=== PATIENT | female | born 1935 | race Two or more races ===

== ENCOUNTER 2020-08-13 17:05 | Inpatient (IN) | payer MEDICARE, MEDICAID ==
[2020-08-13] VITALS (9 sets, daily range): BP systolic 127–164; BP diastolic 67–81
[~2020-08-13] VITALS: Ht 162.6 cm; Wt 78.5 kg
[2020-08-13] MEDS ORDERED: ETOMIDATE (2MG/ML) 20ML VIAL IV ONE ×3 (17:27→18:00)
[2020-08-13] MEDS ORDERED: SUCCINYLCHOLINE CHLORIDE 20 MG/ML 10ML VIAL IV ONE ×3 (17:28→18:00)
[2020-08-13] MEDS ORDERED: MIDAZOLAM DRIP 50 mg/50mL 50 ML IV ONE (17:34)
[2020-08-13] MEDS ORDERED: MIDAZOLAM DRIP 50 mg/50mL 50 ML IV SCH (18:00)
[2020-08-13] MEDS ORDERED: DOXYCYCLINE 100MG/250ML 250 ML IV ONE (18:00)
[2020-08-13] MEDS ORDERED: DexAMETHasone SOD PHOS 10MG/1ML VIAL INJ IV ONE (18:00)
[2020-08-13] MEDS ORDERED: AZITHROMYCIN 500MG/ 250ML 250 ML IV ONE (18:00)
[2020-08-13] MEDS: MIDAZOLAM DRIP 50 mg/50mL 50 ML IV SCH ×2 (18:00→18:08)
[2020-08-13 18:25] LABS: Urine Bacteria MANY /hpf (None Seen); Urine Blood Negative /uL (Negative); Urine Mucus FEW (None Seen); Urine WBC 4 /hpf (0 - 5)
[2020-08-13 18:26] LABS: Basophils # (auto) 0.1 10 ^3/uL (0-0.2); Basophils % (auto) 0.7 % (0.0-2.0); Eosinophils # (auto) 0.2 10 ^3/uL (0-0.8); Eosinophils % (auto) 1.2 % (0.0-7.0); Hematocrit 42.7 % (36.0-46.0); Hemoglobin 13.8 g/dL (12.2-16.2); Lymphocytes # (auto) 5.8 10 ^3/uL (0.4-5.4); Lymphocytes % (auto) 42.1 % (10.0-50.0); Mean Corpuscular Hemoglobin 30.7 pg (28.0-32.0); Mean Corpuscular Hgb Conc. 32.2 g/dL (32.0-36.0); Mean Corpuscular Volume 95.3 fL (80.0-100.0); Monocytes # (auto) 1.1 10 ^3/uL (0-1.3); Monocytes % (auto) 7.8 % (0.0-12.0); Neutrophils # (auto) 6.6 10 ^3/uL (1.6-8.6); Neutrophils % (auto) 48.2 % (37.0-80.0); Nucleated Red Blood Cells % 0.1 %; Platelet Count (auto) 265 10^3/uL (140-450); Red Blood Cells 4.49 10^6/uL (4.0-5.20); Red Cell Distribution Width 15.7 % (11.8-14.3); White Blood Cell 13.8 10^3/uL (4.4-10.8)
[2020-08-13 18:44] LABS: Albumin 3.5 g/dL (3.4-5.0); Anion Gap 11 (5-15); Blood Urea Nitrogen 31 mg/dL (7-18); Calcium 7.9 mg/dL (8.5-10.1); Carbon Dioxide 21 mmol/L (21-32); Chloride 111 mmol/L (98-107); Glucose 218 mg/dL (74-106); Sodium 143 mmol/L (136-145)
[2020-08-13 18:50] LABS: Alanine Aminotransferase 41 U/L (13-56); Alkaline Phosphatase 106 U/L (45-117); Aspartate Aminotransferase 57 U/L (15-37); BUN/Creatinine Ratio 22.5; Bilirubin, Total 0.5 mg/dL (0.2-1.0); GFR African American 47 mL/min; GFR Non-African American 39 mL/min; Total Protein 7.7 g/dL (6.4-8.2)
[2020-08-13] MEDS: NOREPINEPHRINE 8 MG/250ML KIT 250 ML IV SCH (19:00)
[2020-08-13] MEDS: fentaNYL Drip 2500mCg/250mlNS 250 ML IV SCH (19:00)
[2020-08-13] MEDS ORDERED: NOREPINEPHRINE 8 MG/250ML KIT 250 ML IV ONE (19:00)
[2020-08-13] MEDS ORDERED: fentaNYL Drip 2500mCg/250mlNS 250 ML IV ONE (19:01)
[2020-08-13] MEDS ORDERED: NITROGLYCERIN 0.4 MG SL TAB SL PRN (20:00)
[2020-08-13] MEDS ORDERED: MORPHINE SULF INJ 2 MG/ML SYRINGE 1ML IV PRN ×2 (20:00)
[2020-08-13] MEDS ORDERED: ONDANSETRON HCL 4 MG/2 ML VIAL IV PRN (20:00)
[2020-08-13] MEDS ORDERED: DEXTROSE (50%) 50ML SYRG IV PRN (20:00)
[2020-08-13] MEDS ORDERED: ACETAMINOPHEN 500 MG TAB PO PRN (20:00)
[2020-08-13] MEDS: FUROSEMIDE 40 MG/4 ML VIAL IV SCH (21:13)
[2020-08-13 21:32] LABS: INR 1.04 (0.9-1.15); Partial Thromboplastin Time 25.6 sec (23.0-31.2)
[2020-08-13] MEDS: ATORVASTATIN 20 MG TAB PO SCH (22:00)
[2020-08-14] VITALS (105 sets, daily range): BP systolic 72–192; BP diastolic 37–88
[2020-08-14] MEDS: MIDAZOLAM DRIP 50 mg/50mL 50 ML IV SCH ×3 (04:00→18:22)
[2020-08-14 06:48] LABS: Basophils # (auto) 0 10 ^3/uL (0-0.2); Basophils % (auto) 0.2 % (0.0-2.0); Eosinophils # (auto) 0 10 ^3/uL (0-0.8); Hematocrit 38.9 % (36.0-46.0); Hemoglobin 13.1 g/dL (12.2-16.2); Lymphocytes # (auto) 1.2 10 ^3/uL (0.4-5.4); Mean Corpuscular Hemoglobin 31.1 pg (28.0-32.0); Mean Corpuscular Hgb Conc. 33.7 g/dL (32.0-36.0); Mean Corpuscular Volume 92.2 fL (80.0-100.0); Monocytes # (auto) 0.4 10 ^3/uL (0-1.3); Monocytes % (auto) 4.1 % (0.0-12.0); Neutrophils # (auto) 7.4 10 ^3/uL (1.6-8.6); Neutrophils % (auto) 82.7 % (37.0-80.0); Nucleated Red Blood Cells % 0.1 %; Platelet Count (auto) 208 10^3/uL (140-450); Red Blood Cells 4.22 10^6/uL (4.0-5.20); Red Cell Distribution Width 15.2 % (11.8-14.3); White Blood Cell 8.9 10^3/uL (4.4-10.8)
[2020-08-14 07:09] LABS: BUN/Creatinine Ratio 35.5; Calcium 7.8 mg/dL (8.5-10.1); Potassium 3.6 mmol/L (3.5-5.1)
[2020-08-14] MEDS ORDERED: MET50T PO (08:24)
[2020-08-14] MEDS ORDERED: LISI20TA28 PO (08:24)
[2020-08-14] MEDS ORDERED: ASPI-498 OR (08:24)
[2020-08-14] MEDS ORDERED: CLOP75TA70 PO (08:24)
[2020-08-14] MEDS ORDERED: IBAN1TAB2 PO (08:24)
[2020-08-14] MEDS ORDERED: LEVO137C3 PO (08:24)
[2020-08-14] MEDS ORDERED: ATOR20TA50 PO (08:24)
[2020-08-14] MEDS ORDERED: RANO500T2 PO (08:24)
[2020-08-14] MEDS ORDERED: CHOL20007 PO (08:24)
[2020-08-14] MEDS ORDERED: SITA50TA PO (08:24)
[2020-08-14] MEDS ORDERED: DOCU100T15 PO (08:33)
[2020-08-14] MEDS ORDERED: OYST500T48 OR (08:33)
[2020-08-14] MEDS ORDERED: INSRTEST SC (08:33)
[2020-08-14] MEDS ORDERED: INSU1INJ19 SC (08:33)
[2020-08-14] MEDS: PANTOPRAZOLE 40 MG/10 ML VIAL INJ IV SCH (09:43)
[2020-08-14] MEDS: ASPirin-EC 81 mg tab PO SCH (09:43)
[2020-08-14] MEDS ORDERED: ENOXAPARIN SOD 40 MG/0.4 ML SYRINGE SC SCH (10:00)
[2020-08-14 10:12] LABS: INR 1.06 (0.9-1.15); Partial Thromboplastin Time 26.1 sec (23.0-31.2)
[2020-08-14] MEDS: ACCU-CHEK COMFORT CURVE STRIP VI SCH ×4 (12:06→17:37)
[2020-08-14] MEDS: InsuLIN REG 1unit/0.01ml Soln (100units/ml) SC SCH ×4 (12:08→17:38)
[2020-08-14] MEDS ORDERED: IOHEXOL 350 MG/ML 100ML IJ ONE (14:17)
[2020-08-14] MEDS ORDERED: GABA100C9 PO (17:14)
[2020-08-14] MEDS: FUROSEMIDE 40 MG/4 ML VIAL IV SCH ×2 (17:47→18:04)
[2020-08-14] MEDS: fentaNYL Drip 2500mCg/250mlNS 250 ML IV SCH (19:59)
[2020-08-14] MEDS ORDERED: ENOXAPARIN SOD 150 MG/1 ML SYRINGE SC SCH (22:00)
[2020-08-14] MEDS: ATORVASTATIN 20 MG TAB PO SCH (23:04)
[2020-08-14] MEDS: levoFLOXacin 500MG 100 ML IV SCH (23:05)
[2020-08-15] VITALS (102 sets, daily range): BP systolic 90–150; BP diastolic 18–58
[2020-08-15] MEDS: MIDAZOLAM DRIP 50 mg/50mL 50 ML IV SCH ×4 (03:08→17:39)
[2020-08-15 06:09] LABS: Basophils # (auto) 0.1 10 ^3/uL (0-0.2); Basophils % (auto) 0.6 % (0.0-2.0); Eosinophils # (auto) 0 10 ^3/uL (0-0.8); Eosinophils % (auto) 0.4 % (0.0-7.0); Hematocrit 37.7 % (36.0-46.0); Hemoglobin 12.8 g/dL (12.2-16.2); Lymphocytes # (auto) 3.1 10 ^3/uL (0.4-5.4); Lymphocytes % (auto) 25.1 % (10.0-50.0); Mean Corpuscular Hemoglobin 31.6 pg (28.0-32.0); Mean Corpuscular Hgb Conc. 34.1 g/dL (32.0-36.0); Mean Corpuscular Volume 92.9 fL (80.0-100.0); Monocytes # (auto) 1.1 10 ^3/uL (0-1.3); Monocytes % (auto) 8.9 % (0.0-12.0); Neutrophils # (auto) 8.1 10 ^3/uL (1.6-8.6); Nucleated Red Blood Cells % 0.1 %; Platelet Count (auto) 188 10^3/uL (140-450); Red Blood Cells 4.05 10^6/uL (4.0-5.20); Red Cell Distribution Width 15.6 % (11.8-14.3); White Blood Cell 12.5 10^3/uL (4.4-10.8)
[2020-08-15 06:27] LABS: BUN/Creatinine Ratio 34.4; Calcium 7.5 mg/dL (8.5-10.1); Magnesium 2.2 mg/dL (1.6-2.6); Phosphorus 2.1 mg/dL (2.5-4.90); Potassium 3.4 mmol/L (3.5-5.1)
[2020-08-15] MEDS: FUROSEMIDE 40 MG/4 ML VIAL IV SCH (07:45)
[2020-08-15] MEDS: ACCU-CHEK COMFORT CURVE STRIP VI SCH ×4 (07:45→17:59)
[2020-08-15] MEDS: InsuLIN REG 1unit/0.01ml Soln (100units/ml) SC SCH ×4 (08:09→18:00)
[2020-08-15] MEDS: fentaNYL Drip 2500mCg/250mlNS 250 ML IV SCH (08:45)
[2020-08-15] MEDS ORDERED: POTASSIUM CHL 20MEQ/100ML 100 ML IV ONE (10:30)
[2020-08-15] MEDS: PANTOPRAZOLE 40 MG/10 ML VIAL INJ IV SCH (10:41)
[2020-08-15] MEDS: NOREPINEPHRINE 8 MG/250ML KIT 250 ML IV SCH ×2 (10:42→19:30)
[2020-08-15] MEDS: ENOXAPARIN SOD 40 MG/0.4 ML SYRINGE SC SCH (10:42)
[2020-08-15] MEDS: ASPirin-EC 81 mg tab PO SCH (10:42)
[2020-08-15] MEDS: POTASSIUM CHL 20MEQ/100ML 100 ML IV SCH ×2 (10:44→13:04)
[2020-08-15] MEDS ORDERED: DOBUTamine 1000MCG/ML 250 ML IV SCH (13:30)
[2020-08-15] MEDS ORDERED: LIDOCAINE 1% (LOCAL ANESTH.) PF 5ml SDV ID ONE (14:15)
[2020-08-15] MEDS ORDERED: POTASSIUM PHOSPHATE 26.4 MEQ in SODIUM CHL 0.9% 100 ML IV ONE (15:00)
[2020-08-15] MEDS: DOBUTamine 1000MCG/ML 250 ML IV SCH (15:13)
[2020-08-15] MEDS ORDERED: RANO500T3 PO (19:13)
[2020-08-15] MEDS ORDERED: ASPI1TAB91 PO (19:13)
[2020-08-15] MEDS ORDERED: DOCU250C67 PO (19:13)
[2020-08-15] MEDS ORDERED: METO-289 PO (19:21)
[2020-08-15] MEDS ORDERED: POM PO (19:21)
[2020-08-15] MEDS: ATORVASTATIN 20 MG TAB PO SCH (22:07)
[2020-08-15] MEDS: levoFLOXacin 500MG 100 ML IV SCH (22:08)
[2020-08-15] MEDS: SODIUM CHLOR 0.9% PF (SALINE LOCK) 10ML VIAL/SYR IV SCH (22:08)
[2020-08-16] VITALS (107 sets, daily range): BP systolic 101–193; BP diastolic 21–96
[2020-08-16] MEDS: MIDAZOLAM DRIP 50 mg/50mL 50 ML IV SCH ×2 (02:02→10:09)
[2020-08-16 07:34] LABS: Basophils # (auto) 0 10 ^3/uL (0-0.2); Basophils % (auto) 0.3 % (0.0-2.0); Eosinophils # (auto) 0 10 ^3/uL (0-0.8); Eosinophils % (auto) 0.5 % (0.0-7.0); Hematocrit 34.1 % (36.0-46.0); Hemoglobin 11.6 g/dL (12.2-16.2); Lymphocytes # (auto) 1.5 10 ^3/uL (0.4-5.4); Lymphocytes % (auto) 15.7 % (10.0-50.0); Mean Corpuscular Hemoglobin 31.5 pg (28.0-32.0); Mean Corpuscular Hgb Conc. 33.9 g/dL (32.0-36.0); Mean Corpuscular Volume 92.9 fL (80.0-100.0); Neutrophils # (auto) 7.2 10 ^3/uL (1.6-8.6); Neutrophils % (auto) 73.5 % (37.0-80.0); Platelet Count (auto) 156 10^3/uL (140-450); Red Blood Cells 3.67 10^6/uL (4.0-5.20); Red Cell Distribution Width 15.6 % (11.8-14.3); White Blood Cell 9.8 10^3/uL (4.4-10.8)
[2020-08-16 07:46] LABS: Calcium 7.1 mg/dL (8.5-10.1); Potassium 3.8 mmol/L (3.5-5.1)
[2020-08-16 07:50] LABS: BUN/Creatinine Ratio 36.9
[2020-08-16] MEDS: InsuLIN REG 1unit/0.01ml Soln (100units/ml) SC SCH ×4 (08:01→17:49)
[2020-08-16] MEDS: ACCU-CHEK COMFORT CURVE STRIP VI SCH ×4 (08:02→17:49)
[2020-08-16] MEDS: DOBUTamine 1000MCG/ML 250 ML IV SCH (08:46)
[2020-08-16] MEDS: ASPirin-EC 81 mg tab PO SCH (09:44)
[2020-08-16] MEDS: SODIUM CHLOR 0.9% PF (SALINE LOCK) 10ML VIAL/SYR IV SCH ×2 (09:44→22:11)
[2020-08-16] MEDS: PANTOPRAZOLE 40 MG/10 ML VIAL INJ IV SCH (09:44)
[2020-08-16] MEDS: ENOXAPARIN SOD 40 MG/0.4 ML SYRINGE SC SCH (09:45)
[2020-08-16] MEDS: FUROSEMIDE 20 MG/2 ML VIAL IV SCH (09:46)
[2020-08-16] MEDS: PHENYLEPHRINE IV 250 ML IV SCH (12:45)
[2020-08-16] MEDS: fentaNYL Drip 2500mCg/250mlNS 250 ML IV SCH (18:35)
[2020-08-16] MEDS: ATORVASTATIN 20 MG TAB PO SCH (22:09)
[2020-08-16] MEDS: levoFLOXacin 500MG 100 ML IV SCH (22:09)
[2020-08-17] VITALS (78 sets, daily range): BP systolic 107–144; BP diastolic 42–68
[2020-08-17] MEDS: ACCU-CHEK COMFORT CURVE STRIP VI SCH ×5 (05:53→23:55)
[2020-08-17] MEDS: InsuLIN REG 1unit/0.01ml Soln (100units/ml) SC SCH ×5 (05:55→23:56)
[2020-08-17 05:56] LABS: Basophils # (auto) 0 10 ^3/uL (0-0.2); Basophils % (auto) 0.2 % (0.0-2.0); Eosinophils # (auto) 0.1 10 ^3/uL (0-0.8); Eosinophils % (auto) 0.5 % (0.0-7.0); Hematocrit 39.3 % (36.0-46.0); Hemoglobin 12.8 g/dL (12.2-16.2); Lymphocytes # (auto) 1.2 10 ^3/uL (0.4-5.4); Lymphocytes % (auto) 9.2 % (10.0-50.0); Mean Corpuscular Hemoglobin 30.6 pg (28.0-32.0); Mean Corpuscular Hgb Conc. 32.7 g/dL (32.0-36.0); Mean Corpuscular Volume 93.7 fL (80.0-100.0); Monocytes # (auto) 0.8 10 ^3/uL (0-1.3); Monocytes % (auto) 6.2 % (0.0-12.0); Neutrophils # (auto) 10.6 10 ^3/uL (1.6-8.6); Neutrophils % (auto) 83.9 % (37.0-80.0); Platelet Count (auto) 153 10^3/uL (140-450); Red Blood Cells 4.19 10^6/uL (4.0-5.20); Red Cell Distribution Width 15.4 % (11.8-14.3); White Blood Cell 12.6 10^3/uL (4.4-10.8)
[2020-08-17 06:16] LABS: BUN/Creatinine Ratio 39.4; Calcium 7.6 mg/dL (8.5-10.1); Potassium 3.8 mmol/L (3.5-5.1)
[2020-08-17] MEDS: DOBUTamine 1000MCG/ML 250 ML IV SCH (07:17)
[2020-08-17] MEDS: NOREPINEPHRINE 8 MG/250ML KIT 250 ML IV SCH ×2 (07:17→19:30)
[2020-08-17] MEDS: PHENYLEPHRINE IV 250 ML IV SCH ×3 (07:17→22:05)
[2020-08-17] MEDS: PANTOPRAZOLE 40 MG/10 ML VIAL INJ IV SCH (09:30)
[2020-08-17] MEDS: SODIUM CHLOR 0.9% PF (SALINE LOCK) 10ML VIAL/SYR IV SCH ×2 (09:30→22:00)
[2020-08-17] MEDS: FUROSEMIDE 20 MG/2 ML VIAL IV SCH (09:30)
[2020-08-17] MEDS: ASPirin-EC 81 mg tab PO SCH (09:31)
[2020-08-17] MEDS: ENOXAPARIN SOD 40 MG/0.4 ML SYRINGE SC SCH (09:31)
[2020-08-17] MEDS: MIDAZOLAM DRIP 50 mg/50mL 50 ML IV SCH ×2 (09:31→22:00)
[2020-08-17] MEDS: fentaNYL Drip 2500mCg/250mlNS 250 ML IV SCH (19:30)
[2020-08-17] MEDS: levoFLOXacin 500MG 100 ML IV SCH (21:00)
[2020-08-17] MEDS: ATORVASTATIN 20 MG TAB PO SCH (22:00)
[2020-08-18] VITALS (16 sets, daily range): BP systolic 114–142; BP diastolic 43–61
[2020-08-18] MEDS: DOBUTamine 1000MCG/ML 250 ML IV SCH (02:51)
[2020-08-18] MEDS: ACCU-CHEK COMFORT CURVE STRIP VI SCH ×4 (05:36→23:37)
[2020-08-18] MEDS: InsuLIN REG 1unit/0.01ml Soln (100units/ml) SC SCH ×3 (05:38→17:56)
[2020-08-18] MEDS: PHENYLEPHRINE IV 250 ML IV SCH (05:39)
[2020-08-18 06:04] LABS: Basophils # (auto) 0 10 ^3/uL (0-0.2); Basophils % (auto) 0.4 % (0.0-2.0); Eosinophils # (auto) 0.1 10 ^3/uL (0-0.8); Eosinophils % (auto) 0.9 % (0.0-7.0); Hematocrit 34.8 % (36.0-46.0); Hemoglobin 11.7 g/dL (12.2-16.2); Lymphocytes # (auto) 1.3 10 ^3/uL (0.4-5.4); Lymphocytes % (auto) 12.1 % (10.0-50.0); Mean Corpuscular Hemoglobin 31.3 pg (28.0-32.0); Mean Corpuscular Hgb Conc. 33.7 g/dL (32.0-36.0); Monocytes # (auto) 0.9 10 ^3/uL (0-1.3); Monocytes % (auto) 7.9 % (0.0-12.0); Neutrophils # (auto) 8.5 10 ^3/uL (1.6-8.6); Neutrophils % (auto) 78.7 % (37.0-80.0); Nucleated Red Blood Cells % 0.1 %; Platelet Count (auto) 157 10^3/uL (140-450); Red Blood Cells 3.74 10^6/uL (4.0-5.20); Red Cell Distribution Width 15.2 % (11.8-14.3); White Blood Cell 10.8 10^3/uL (4.4-10.8)
[2020-08-18 06:31] LABS: BUN/Creatinine Ratio 44.1; Calcium 7.7 mg/dL (8.5-10.1); Potassium 3.8 mmol/L (3.5-5.1)
[2020-08-18] MEDS: MIDAZOLAM DRIP 50 mg/50mL 50 ML IV SCH (07:33)
[2020-08-18] MEDS: FUROSEMIDE 20 MG/2 ML VIAL IV SCH (09:45)
[2020-08-18] MEDS: PANTOPRAZOLE 40 MG/10 ML VIAL INJ IV SCH (09:45)
[2020-08-18] MEDS: CARVEDILOL 3.125 MG TAB PO SCH ×2 (09:46→23:36)
[2020-08-18] MEDS: SODIUM CHLOR 0.9% PF (SALINE LOCK) 10ML VIAL/SYR IV SCH ×2 (09:46→23:36)
[2020-08-18] MEDS: ENOXAPARIN SOD 40 MG/0.4 ML SYRINGE SC SCH (09:46)
[2020-08-18] MEDS: ASPirin-EC 81 mg tab PO SCH (09:46)
[2020-08-18] MEDS: SACUBITRIL-VALSARTAN 24mg/26mg TAB PO SCH ×2 (09:46→23:36)
[2020-08-18] MEDS: levoFLOXacin 500MG 100 ML IV SCH (21:51)
[2020-08-18] MEDS: ATORVASTATIN 20 MG TAB PO SCH (23:37)
[2020-08-19] MEDS: InsuLIN REG 1unit/0.01ml Soln (100units/ml) SC SCH ×4 (00:40→18:26)
[2020-08-19 05:00] VITALS: BP 105/55
[2020-08-19] MEDS: ACCU-CHEK COMFORT CURVE STRIP VI SCH ×3 (06:43→18:25)
[2020-08-19 08:59] VITALS: BP 111/52
[2020-08-19] MEDS: ASPirin-EC 81 mg tab PO SCH (10:10)
[2020-08-19] MEDS: SACUBITRIL-VALSARTAN 24mg/26mg TAB PO SCH ×2 (10:11→22:30)
[2020-08-19] MEDS: SODIUM CHLOR 0.9% PF (SALINE LOCK) 10ML VIAL/SYR IV SCH ×2 (10:11→22:29)
[2020-08-19] MEDS: ENOXAPARIN SOD 40 MG/0.4 ML SYRINGE SC SCH (10:11)
[2020-08-19] MEDS: FUROSEMIDE 20 MG/2 ML VIAL IV SCH (10:12)
[2020-08-19] MEDS: PANTOPRAZOLE 40 MG/10 ML VIAL INJ IV SCH (10:12)
[2020-08-19 13:00] VITALS: BP 117/58
[2020-08-19] MEDS: CARVEDILOL 3.125 MG TAB PO SCH ×2 (13:42→22:30)
[2020-08-19 16:52] VITALS: BP 124/60
[2020-08-19] MEDS: levoFLOXacin 500MG 100 ML IV SCH (21:18)
[2020-08-19 21:53] VITALS: BP 120/60
[2020-08-19] MEDS: ATORVASTATIN 20 MG TAB PO SCH (22:30)
[2020-08-20] MEDS: ACCU-CHEK COMFORT CURVE STRIP VI SCH ×5 (00:16→23:42)
[2020-08-20] MEDS: InsuLIN REG 1unit/0.01ml Soln (100units/ml) SC SCH ×5 (00:36→23:43)
[2020-08-20 05:00] VITALS: BP 99/49
[2020-08-20 09:00] VITALS: BP 122/59
[2020-08-20] MEDS: SODIUM CHLOR 0.9% PF (SALINE LOCK) 10ML VIAL/SYR IV SCH ×2 (11:13→22:15)
[2020-08-20] MEDS: ASPirin-EC 81 mg tab PO SCH (11:13)
[2020-08-20] MEDS: PANTOPRAZOLE 40 MG/10 ML VIAL INJ IV SCH (11:13)
[2020-08-20] MEDS: ENOXAPARIN SOD 40 MG/0.4 ML SYRINGE SC SCH (11:14)
[2020-08-20] MEDS: SACUBITRIL-VALSARTAN 24mg/26mg TAB PO SCH ×2 (11:14→22:15)
[2020-08-20] MEDS: FUROSEMIDE 20 MG/2 ML VIAL IV SCH (11:16)
[2020-08-20] MEDS: CARVEDILOL 3.125 MG TAB PO SCH ×2 (11:16→22:15)
[2020-08-20 12:37] VITALS: BP 113/68
[2020-08-20 17:00] VITALS: BP 114/56
[2020-08-20] MEDS ORDERED: POLYETHYLENE GLYCOL 17 GM PWDR PO ONE (17:30)
[2020-08-20] MEDS ORDERED: LACTULOSE 20Gm/30ML SOLN PO ONE (17:30)
[2020-08-20] MEDS: levoFLOXacin 500MG 100 ML IV SCH (20:42)
[2020-08-20 21:31] VITALS: BP 110/53
[2020-08-20] MEDS: ATORVASTATIN 20 MG TAB PO SCH (22:15)
[2020-08-21 04:58] VITALS: BP 116/66
[2020-08-21] MEDS: ACCU-CHEK COMFORT CURVE STRIP VI SCH ×2 (05:57→12:13)
[2020-08-21] MEDS: InsuLIN REG 1unit/0.01ml Soln (100units/ml) SC SCH ×2 (05:57→12:22)
[2020-08-21 08:24] LABS: BUN/Creatinine Ratio 27.8; Calcium 8.8 mg/dL (8.5-10.1); Potassium 4.2 mmol/L (3.5-5.1)
[2020-08-21 09:00] VITALS: BP 111/56
[2020-08-21] MEDS: CARVEDILOL 3.125 MG TAB PO SCH (09:49)
[2020-08-21] MEDS: SACUBITRIL-VALSARTAN 24mg/26mg TAB PO SCH (09:49)
[2020-08-21] MEDS: ASPirin-EC 81 mg tab PO SCH (09:50)
[2020-08-21] MEDS: ENOXAPARIN SOD 40 MG/0.4 ML SYRINGE SC SCH (09:50)
[2020-08-21] MEDS: PANTOPRAZOLE 40 MG/10 ML VIAL INJ IV SCH (09:50)
[2020-08-21] MEDS: SODIUM CHLOR 0.9% PF (SALINE LOCK) 10ML VIAL/SYR IV SCH (09:51)
[2020-08-21 09:57] VITALS: BP 95/52
[2020-08-21] MEDS ORDERED: FUROSEMIDE 40 MG/4 ML VIAL IV SCH (10:00)
[2020-08-21 13:00] VITALS: BP 118/61
[2020-08-21 16:42] VITALS: BP 111/67
== END 2020-08-21 17:30 | disposition home or self-care (01) | DRG 871 ==
LOC: ER 17:09 → TELE 19:54 → DOU IN ICU 22:55 → TELE-EAST 08-18 16:10
PROVIDERS: ADMIT Nurse Practitioner Acute Care; ATTEND Internal Medicine
PROC: 5A1945Z Respiratory Ventilation, 24-96 Consecutive Hours (ICD-10-PCS; principal; 2020-08-13)
PROC: 0BH17EZ Insertion of Endotracheal Airway into Trachea, Via Natural or Artificial Opening (ICD-10-PCS; 2020-08-13)
PROC: 0D9670Z Drainage of Stomach with Drainage Device, Via Natural or Artificial Opening (ICD-10-PCS; 2020-08-13)
PROC: 02HV33Z Insertion of Infusion Device into Superior Vena Cava, Percutaneous Approach (ICD-10-PCS; 2020-08-15)
PROC: B548ZZA Ultrasonography of Superior Vena Cava, Guidance (ICD-10-PCS; 2020-08-15)
PROC: 0BP1XDZ Removal of Intraluminal Device from Trachea, External Approach (ICD-10-PCS; 2020-08-19)
DX: A41.9 Sepsis, unspecified organism (principal); R65.21 Severe sepsis with septic shock; J96.01 Acute respiratory failure with hypoxia; N17.0 Acute kidney failure with tubular necrosis; J18.9 Pneumonia, unspecified organism; I50.43 Acute on chronic combined systolic (congestive) and diastolic (congestive) heart failure; Z68.44 Body mass index [BMI] 60.0-69.9, adult; J98.11 Atelectasis; E87.3 Alkalosis; I13.0 Hypertensive heart and chronic kidney disease with heart failure and stage 1 through stage 4 chronic kidney disease, or unspecified chronic kidney disease; Z20.822 Contact with and (suspected) exposure to COVID-19; I25.10 Atherosclerotic heart disease of native coronary artery without angina pectoris; E66.01 Morbid (severe) obesity due to excess calories; E11.22 Type 2 diabetes mellitus with diabetic chronic kidney disease; N18.31 Chronic kidney disease, stage 3a; N30.90 Cystitis, unspecified without hematuria; E78.5 Hyperlipidemia, unspecified; B96.1 Klebsiella pneumoniae [K. pneumoniae] as the cause of diseases classified elsewhere; Z95.5 Presence of coronary angioplasty implant and graft
CPT/HCPCS: 31500; 36415; 36569; 36600; 51702; 71045; 71275; 80048; 80053; 81001; 82553; 82728; 82805; 82962; 83036; 83605; 83735; 83880; 84100; 84443; 84484; 85025; 85379; 85384; 85610; 85730; 86141; 86850; 86900; 86901; 87040; 87070; 87077; 87081; 87086; 87088; 87186; 87205; 87426; 92610; 93005; 93306; 93970; 94002; 94003; 94640; 96365; 96368; 96375; 99291; C9113; G0378; J0330; J1100; J1815; J1956; J2250; J3480; J3490